=== PATIENT | male | born 1955 | race Caucasian/White ===

== ENCOUNTER → 2020-06-02 | Outpatient (CLI) | payer MEDICARE, OTHER ==
[~2020-06-02] MED LIST: COUMADIN7.5 MG PO; DOLOPHINE HCL10 MG PO; HYDROCHLOROTHIA25 MG PO; K-DUR TAB 10 M10 MEQ PO; LASIX20 MG PO; LEVEMIR100 UNIT/1 SQ; LISINOPRIL10 MG PO; LOPRESSOR 25 MG25 MG PO; TOPROL XL50 MG PO; WARFARIN SODIUM6 MG PO
== END ==
LOC: KOH-I 16:12
DX: M54.2 Cervicalgia (principal); M19.09 Primary osteoarthritis, other specified site
CPT/HCPCS: 72040

== ENCOUNTER 2020-10-01 16:59 | Observation (INO) | payer MEDICARE, OTHER ==
[~2020-10-01] VITALS: Ht 175.3 cm; Wt 138.3 kg
[~2020-10-01 16:59] MED LIST changes: -LISINOPRIL10 MG PO; -TOPROL XL50 MG PO; -WARFARIN SODIUM6 MG PO
[2020-10-01 17:52] LABS: HEMOGLOBIN 15.8 gm/dl (14.0-17.5); RED BLOOD COUNT 5.35 M/UL (4.20-5.50); WHITE BLOOD COUNT 11.3 K/UL (4.5-11.0)
[2020-10-01 18:06] LABS: BUN/CREATININE RATIO 30 (0-10)
[2020-10-01] MEDS ORDERED: TOPROL XL50 MG PO (23:00)
[2020-10-01] MEDS ORDERED: WARFARIN SODIUM6 MG PO (23:00)
[2020-10-01] MEDS ORDERED: LEVEMIR100 UNIT/1 SQ (23:01)
[2020-10-01] MEDS ORDERED: LISINOPRIL10 MG PO (23:02)
[2020-10-02 03:24] LABS: HEMOGLOBIN 14.6 gm/dl (14.0-17.5); RED BLOOD COUNT 4.96 M/UL (4.20-5.50); WHITE BLOOD COUNT 9.9 K/UL (4.5-11.0)
[2020-10-02 03:45] LABS: BUN/CREATININE RATIO 28 (0-10)
== END 2020-10-02 11:22 | disposition home or self-care (01) ==
LOC: ER1 16:59 → CDU 20:05 → PROG CARE 20:05
PROVIDERS: Emergency Medicine; ADMIT Internal Medicine
DX: I48.0 Paroxysmal atrial fibrillation (principal); K52.9 Noninfective gastroenteritis and colitis, unspecified; I25.10 Atherosclerotic heart disease of native coronary artery without angina pectoris; E11.9 Type 2 diabetes mellitus without complications; E87.1 Hypo-osmolality and hyponatremia; D68.9 Coagulation defect, unspecified; E78.5 Hyperlipidemia, unspecified; E66.01 Morbid (severe) obesity due to excess calories; Z68.41 Body mass index [BMI] 40.0-44.9, adult; Z20.822 Contact with and (suspected) exposure to COVID-19; Z86.718 Personal history of other venous thrombosis and embolism; Z88.2 Allergy status to sulfonamides; Z95.5 Presence of coronary angioplasty implant and graft; Z79.4 Long term (current) use of insulin; Z79.01 Long term (current) use of anticoagulants; Z79.899 Other long term (current) drug therapy
CPT/HCPCS: 36415; 71045; 80048; 80053; 82550; 82553; 83735; 83874; 83880; 84439; 84443; 84484; 85025; 85379; 85610; 93005; 96374; 99285; G0378; U0002

== ENCOUNTER 2021-05-13 07:18 | Emergency (ER) | payer MEDICARE, OTHER ==
[~2021-05-13 07:18] MED LIST changes: +LISINOPRIL10 MG PO; +TOPROL XL50 MG PO; +WARFARIN SODIUM6 MG PO
[2021-05-13 08:10] LABS: HEMOGLOBIN 13.8 gm/dl (14.0-17.5); RED BLOOD COUNT 4.76 M/UL (4.20-5.50); WHITE BLOOD COUNT 10.3 K/UL (4.5-11.0)
[2021-05-13 08:50] LABS: BUN/CREATININE RATIO 28 (0-10)
== END 2021-05-13 11:45 | disposition home or self-care (01) ==
LOC: ER1 07:18
PROVIDERS: Family Medicine
DX: I66.02 Occlusion and stenosis of left middle cerebral artery (principal); R47.81 Slurred speech; R29.810 Facial weakness; Z79.01 Long term (current) use of anticoagulants; R79.1 Abnormal coagulation profile; R29.701 NIHSS score 1; D68.51 Activated protein C resistance; E11.9 Type 2 diabetes mellitus without complications; Z79.4 Long term (current) use of insulin; Z88.2 Allergy status to sulfonamides; Z20.822 Contact with and (suspected) exposure to COVID-19
CPT/HCPCS: 70450; 70496; 70498; 71045; 80053; 82550; 82553; 83874; 84484; 85025; 85610; 85730; 86140; 99285; Q9967; U0002

== ENCOUNTER → 2021-08-31 | Outpatient (CLI) | payer MEDICARE, OTHER | LOC: KOH-I 14:00 | DX: H53.121 Transient visual loss, right eye (principal) | CPT/HCPCS: 93880 ==